=== PATIENT | male | born 1970 | race Caucasian/White ===

== ENCOUNTER 2021-04-29 01:42 | Day surgery (SDC) | payer OTHER, SELFPAY ==
[2021-04-21 10:32] VITALS: BMI 32.5
[2021-04-29 06:24] VITALS: BP 111/84; PULSE 90; RESP 20; TEMP 36.2; O2SAT 97
[2021-04-29] MEDS: LACTATED RINGERS 1,000 ML 150 ML IV CONT (06:34)
--- NOTE | 2021-04-29 06:41 | WPDANESEPPF ---
Anes - Initial Pre Proc Eval Procedure: Operation Date: 04/29/21 07:30 Proposed Procedures p Colonoscopy - Robi Crowley MD Date/Time: 04/29/21 06:41 Surgeon: Robi Crowley MD Pre Op Diagnosis: positive cologuard Patient Data Age: 50 Gender: M Height: 1.83 m Weight: 106.4 kg Last Vital Signs Temp 36.2 C L 04/29/21 06:24 Pulse 90 04/29/21 06:24 Resp 20 04/29/21 06:24 BP 111/84 04/29/21 06:24 Pulse Ox 97 04/29/21 06:24 Allergies Allergy/AdvReac Type Severity Reaction Status Date / Time NKDA Allergy Mild Unknown Uncoded 04/29/21 06:23 Home Medications Medication Instructions Recorded Confirmed Type lisinopril 10 mg PO DAILY 04/21/21 04/21/21 History Patient hx anesthesia problems: none Family hx anesthesia problems: none [facility] Past Medical History Medical History HTN (hypertension) Obesity Smoker Social History Social History Smoking packs per day: 1 Smoking cigarettes per day: 20.0 Smoking status: Current every day smoker Tobacco type: cigarettes Alcohol intake: former Alcohol use details: 2 GALLON VODKA PER WEEK NONE 23 YEARS Substance use: former Substance use type: former substance user, marijuana, crack/cocaine and heroin Other substance usage details: NONE FOR 23 Living arrangements: alone Spiritual care concerns: No Anes - Eval Final PreProcedure Day of Procedure 04/29/21 06:41 Patient weight: obese Heart: regular rate and rhythm Lungs: clear to auscultation Airway: Mallampati scale class II Neurological: alert and oriented Last oral intake: >/= 8 hours ASA classification: III Emergent: no Anesthetic plan: proceed Anesthesia type and monitoring: general GIVS and standard monitoring Informed Consent: The patient's anesthetic plan and its attendant risks and benefits were discussed with the patient/family/POA. Questions were solicited and answers provided to the satisfaction of the patient/family/POA.
--- NOTE | 2021-04-29 07:36 | PM.HPGS ---
History of Present Illness History of Present Illness Consent: Risks, benefits, and alternatives have been discussed and questions answered. Patient agrees to proceed with procedure. Chief complaint: positive cologuard Narrative: Bora Jurado Jr. is a 50 year old male here for first screening colonoscopy but had + cologuard Review of Systems Constitutional: Constitutional: Denies headache(s) and Denies weakness Eyes: Eyes: Denies blurry vision ENT: Reports Normal hearing present, Denies headache(s) and Denies neck pain Cardiovascular: Cardiovascular: Denies chest pain and Denies dyspnea Respiratory: Respiratory: Denies dyspnea Gastrointestinal: Gastrointestinal: Reports no additional gastrointestinal complaints Genitourinary: Genitourinary: Denies dysuria Musculoskeletal: Musculoskeletal: Denies neck pain Integumentary/Breasts: Skin/Breast: Denies dry skin Neurologic: Reports Normal hearing present, Denies headache(s) and Denies weakness Psychiatric: Psychiatric: Denies anxiety Endocrine: Endocrine: Denies change in body appearance Hematologic/Lymphatic: Hematologic/Lymphatic: Denies easy bleeding Allergic/Immunologic: Allergic/Immunologic: Denies urticaria PMFSH Past Medical History Medical History HTN (hypertension) Obesity Positive colorectal cancer screening using Cologuard test Smoker Social History Social History Smoking packs per day: 1 Smoking cigarettes per day: 20.0 Smoking status: Current every day smoker Tobacco type: cigarettes Alcohol intake: former Alcohol use details: 2 GALLON VODKA PER WEEK NONE 23 YEARS Substance use: former Substance use type: former substance user, marijuana, crack/cocaine and heroin Other substance usage details: NONE FOR 23 Living arrangements: alone Spiritual care concerns: No Meds Home Medications and Allergies Home Medications Medication Instructions Recorded Confirmed Type lisinopril 10 mg PO DAILY 04/21/21 04/21/21 History Allergies Allergy/AdvReac Type Severity Reaction Status Date / Time NKDA Allergy Mild Unknown Uncoded 04/29/21 06:23 Vital Signs Vital Signs - 24 hr 04/29/21 06:24 Temperature 97.2 F L Pulse Rate 90 Respiratory Rate 20 Blood Pressure 111/84 Pulse Oximetry 97 Exam Const: General: comfortable and no acute distress HENMT: General nose exam: Normal nares present Eyes: General: appearance normal, both eyes and all related structures Neck: Neck: no JVD Resp: Auscultation: clear to auscultation bilaterally Cardio: Rate: regular rate Rhythm: regular rhythm GI: Inspection: non-distended GI Palp: Yes Soft to palpation Skin: General skin exam: normal color Neuro: General: gait normal Speech: normal speech Extrem: General: normal to inspection Psych: Mental Status: mental status grossly normal Assessment and Plan Assessment and plan (1) Positive colorectal cancer screening using Cologuard test: Code(s): R19.5 - Other fecal abnormalities Status: Acute Assessment and Plan: colonoscopy
[2021-04-29 08:02] VITALS: BP 117/75; PULSE 80; RESP 20; O2SAT 98
[2021-04-29 08:12] VITALS: BP 104/72; PULSE 73; RESP 22; O2SAT 97
[2021-04-29 08:22] VITALS: BP 110/78; PULSE 73; RESP 22; O2SAT 100
== END 2021-04-29 08:33 | disposition home or self-care (01) ==
PROVIDERS: PCP Nurse Practitioner Adult Health; Visit Provider Internal Medicine Gastroenterology
PROC: 0DJD8ZZ Inspection of Lower Intestinal Tract, Via Natural or Artificial Opening Endoscopic (ICD-10-PCS; CPT 45378; principal; 2021-04-29 07:30)
DX: Z12.11 Encounter for screening for malignant neoplasm of colon (principal); D12.3 Benign neoplasm of transverse colon; K64.8 Other hemorrhoids; K63.5 Polyp of colon
CPT/HCPCS: 45385; 88305; J2704; J7120

== ENCOUNTER → 2021-11-03 02:06 | Outpatient (CLI) | payer BC, SELFPAY ==
[2021-11-03 12:25] LABS: SARS-CoV-2 RNA PCR Negative
== END ==
PROVIDERS: PCP Nurse Practitioner Adult Health; Visit Provider Nurse Practitioner Adult Health
DX: R68.89 Other general symptoms and signs (principal); Z20.822 Contact with and (suspected) exposure to COVID-19
CPT/HCPCS: C9803; U0003; U0005